=== PATIENT | male | born 1995 | race American Indian/Alaskan Native ===

== ENCOUNTER 2017-06-21 22:02 | Emergency (ER) | payer SELFPAY ==
[2017-06-21] MEDS ORDERED: BOOSTRIX IM ONE (22:30)
[2017-06-21] MEDS ORDERED: ceFAZolin 1 GM in NACL 0.9% 20 ML IV SCH (22:30)
[2017-06-21 22:33] VITALS: BP 140/80
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
[2017-06-21 22:49] LABS: Basophils # (Auto) 0.1 K/mm3 (0.0-0.1); Basophils % (Auto) 0.3 % (0.0-1.8); Eosinophils # (Auto) 0.1 K/mm3 (0.0-0.4); Eosinophils % (Auto) 0.6 % (0.0-4.3); Hematocrit 49.1 % (35.5-45.6); Hemoglobin 16.9 gm/dl (11.8-15.2); Lymphocytes # (Auto) 3.4 K/mm3 (1.2-5.4); Lymphocytes % (Auto) 18.6 % (13.4-35.0); Mean Corpuscular HGB Conc 35 % (32-34); Mean Corpuscular Hemoglobin 30 pg (28-32); Mean Corpuscular Volume 88 fl (84-94); Monocytes # (Auto) 0.9 K/mm3 (0.0-0.8); Monocytes % (Auto) 4.8 % (0.0-7.3); Red Cell Distribution Width 14.2 % (13.2-15.2)
[2017-06-21 22:50] LABS: Platelet Count 301 K/mm3 (140-440)
[2017-06-21 23:01] LABS: Alanine Aminotransferase 10 units/L (7-56); Albumin 4.7 g/dL (3.9-5); BUN/Creatinine Ratio 11; Blood Urea Nitrogen 10 mg/dL (9-20); Hemolysis Index 8
[2017-06-21] MEDS ORDERED: K-DUR PO ONE (23:23)
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
[2017-06-22] MEDS ORDERED: TRIPLE ANTIBIOTIC TP ONE ×2 (00:14→01:56)
[2017-06-22] MEDS ORDERED: PERCOCET 5/325 PO ONE (00:45)
== END 2017-06-22 02:05 | disposition home or self-care (01) ==
LOC: ED 22:02
DX: S60.512A Abrasion of left hand, initial encounter (principal); S60.511A Abrasion of right hand, initial encounter; M54.5 Low back pain; E87.6 Hypokalemia; Z87.891 Personal history of nicotine dependence; V87.8XXA Person injured in other specified noncollision transport accidents involving motor vehicle (traffic), initial encounter; Y93.89 Activity, other specified; Y92.89 Other specified places as the place of occurrence of the external cause; Y99.8 Other external cause status
CPT/HCPCS: 36415; 70450; 71045; 72100; 73130; 80053; 82550; 85025; 90471; 90715; 93005; 93010; 96374; 99285; G0480; J0690; 80320; A6250